=== PATIENT | male | born 1960 | race Caucasian/White ===

== ENCOUNTER 2021-04-14 19:57 | Inpatient (IN) | payer MEDICAID ==
[~2021-04-14] VITALS: Ht 172.7 cm; Wt 106.6 kg
[2021-04-14 19:57] VITALS: BP 123/75
--- NOTE | 2021-04-14 19:57 | NUR ---
ed from [facility] ([facility] [place]) c/o fever and hypotension. according to facility, patient is nonverbal but tracks but per family patient responds to yes and no question with head responses. patient was warm to the touch and diaphoretic. patient with increased RR up to 40s upon admission. per facility patient was saturating at around 85%. crackles throughout lung berry with and without auscultation. patient admitted with varghese, gtube, and a sacral wound. patient on anticoagulation. PMH: DM2, CVA, DVT/PE, COVID, chronic respiratoy failure, seizure, HTN, Neurogenic bladder allergies: meropenem, vancomycin pt DNR with selective treatment
--- NOTE | 2021-04-14 19:57 | NUR ---
PT LORETTA ALS. TAKEN TO BED 7
[2021-04-14] MEDS ORDERED: NACL 0.9% 1,000 ML IV ONE ×2 (20:05→22:15)
[2021-04-14] MEDS ORDERED: VANCOMYCIN 1,000 MG in DEXTROSE 5% 250 ML IV ONE (20:05)
[2021-04-14] MEDS ORDERED: PIPERACILLIN/TAZOBACTAM 3.375 GM in DEXTROSE 5% 50 ML IV ONE (20:05)
--- NOTE | 2021-04-14 20:19 | NUR ---
xray at bedside
[2021-04-14 21:02] LABS: HEMATOCRIT 39.4 % (36-52); HEMOGLOBIN 12.1 g/dL (12.0-18.0); MEAN CORPUSCULAR HEMOGLOBIN 27 pg (27-31); MEAN CORPUSCULAR HGB CONC 31 g/dL (33-37); MEAN CORPUSCULAR VOLUME 86.4 fL (80-94); PLATELET COUNT (AUTO) 232 K/uL (140-450); RED BLOOD CELL COUNT(AUTO) 4.56 MIL/uL (4.20-6.10); RED CELL DISTRIBUTION WIDTH 18.9 % (11.6-13.7); WHITE BLOOD COUNT (AUTO) 19.3 K/uL (4.8-10.8)
[2021-04-14] MEDS ORDERED: PIPERACILLIN/TAZOBACTAM 3.375 GM VIAL IV ONE (21:24)
[2021-04-14 21:36] LABS: ALBUMIN 2.6 g/dL (3.4-5.0); CARBON DIOXIDE 25.6 mmol/L (21-32); CREATININE 0.9 mg/dL (0.6-1.3); TOTAL BILIRUBIN 0.2 mg/dL (0.0-1.0)
[2021-04-14 21:37] LABS: POTASSIUM 2.6 mmol/L (3.5-5.1)
[2021-04-14 21:48] LABS: LYMPHOCYTES % (MANUAL) 31 % (20-46); METAMYELOCYTES % 1 % (0-0); MONOCYTES % (MANUAL) 2 % (5-12)
[2021-04-14] MEDS ORDERED: POTASSIUM CHLORIDE 10 MEQ TABER PO ONE (21:50)
[2021-04-14] MEDS: LINEZOLID 600MG PREMIX 300 ML IV SCH (22:05)
[2021-04-14] MEDS ORDERED: KCL 20 MEQ/WATER INJ PREMIX 200 ML IV ONE (22:55)
[2021-04-14 23:05] LABS: BILIRUBIN,URINE NEGATIVE (NEGATIVE); BLOOD, URINE 1+ (NEGATIVE); LEUKOCYTE ESTERASE ,URINE 1+ (NEGATIVE); NITRITE, URINE NEGATIVE (NEGATIVE); UGLUCOSE NEGATIVE (NEGATIVE)
[2021-04-14] MEDS ORDERED: NACL 0.9% 1,000 ML IV SCH (23:15)
[2021-04-14] MEDS ORDERED: MORPHINE SULFATE 2 MG/ML SYR IVP PRN (23:15)
[2021-04-14] MEDS ORDERED: HYDROcodone/APAP 5/325 MG 1 TAB TAB PO PRN (23:15)
[2021-04-14] MEDS ORDERED: POTASSIUM CHLORIDE 40 MEQ, LIDOCAINE MPF 1% 25 MG in NACL 0.9% 250 ML IV PRN (23:15)
[2021-04-14] MEDS ORDERED: ONDANSETRON 4 MG/2 ML VIAL IM/IVP PRN (23:15)
[2021-04-14] MEDS ORDERED: INSULIN LISPRO SLIDING SCALE 100 UNITS/ML VIAL SUBQ PRN (23:15)
[2021-04-14] MEDS ORDERED: DEXTROSE 50% 50 ML SYR IVP PRN (23:15)
[2021-04-14] MEDS ORDERED: DOCUSATE SODIUM 100 MG GELCAP PO PRN (23:15)
[2021-04-14] MEDS ORDERED: MAG SULF 2000 MG/WATER PREMIX 50 ML IV PRN (23:15)
[2021-04-14] MEDS ORDERED: SODIUM PHOS / POTASSIUM PHOS 1 PKT PDR PO PRN (23:15)
[2021-04-14 23:43] LABS: URINE TOTAL PROTEIN 72.1 mg/dL (0-12)
--- NOTE | 2021-04-14 23:44 | NUR ---
patient daughter Jocelyne called for updates.
[2021-04-14 23:51] LABS: APPEARANCE,URINE HAZY (CLEAR); COLOR,URINE YELLOW (YELLOW)
[2021-04-14 23:54] LABS: RBC,URINE 0-5 /HPF (0-5)
[2021-04-14 23:55] LABS: CALCIUM OXALATE CRYSTALS,UR 50-70 /HPF (None Seen)
--- NOTE | 2021-04-15 00:45 | NUR ---
Patient noted to have existing wounds upon arrival to ER. Photos taken of wound and placed in chart. Wound covered with dressing. Physician informed.
[2021-04-15 00:46] LABS: MAGNESIUM 2.1 mg/dL (1.8-2.4); PHOSPHORUS 2.9 mg/dL (2.5-4.9)
--- NOTE | 2021-04-15 01:15 | NUR ---
pericare done for patient, bed bath, and changed clothing. Patient repositioned on the left side. patient tolerated well. safety measures are in place, will continue to monitor patient
[2021-04-15 01:37] LABS: ANION GAP 13.4 (8-16); CARBON DIOXIDE 28.3 mmol/L (21-32); POTASSIUM 3.7 mmol/L (3.5-5.1)
[2021-04-15] MEDS ORDERED: NACL 0.45% 1,000 ML IV SCH (01:50)
--- NOTE | 2021-04-15 03:29 | NUR ---
Patient repositioned on the supine. patient tolerated well. safety measures are in place, will continue to monitor patient
[2021-04-15] MEDS ORDERED: METF-988 PO (06:54)
[2021-04-15] MEDS ORDERED: GUAN1TAB6 GT (06:54)
[2021-04-15] MEDS ORDERED: KEP500L GT (06:54)
[2021-04-15] MEDS ORDERED: APIX5TAB GT (06:54)
[2021-04-15] MEDS ORDERED: CLON-553 GT (06:54)
[2021-04-15] MEDS ORDERED: LANS15EC31 GT (06:54)
[2021-04-15] MEDS ORDERED: NOVN SUBQ (06:54)
[2021-04-15] MEDS ORDERED: ACET-2619 PO (06:54)
[2021-04-15] MEDS ORDERED: SIME1SOL GT (06:54)
[2021-04-15] MEDS ORDERED: VITB12 GT (06:54)
[2021-04-15] MEDS ORDERED: LANTUS SUBQ (06:54)
[2021-04-15] MEDS ORDERED: CRAN450T5 GT (06:54)
[2021-04-15] MEDS ORDERED: FURO-572 GT (06:54)
--- NOTE | 2021-04-15 07:19 | NUR ---
Pt report given to Dewey BASURTO. Transfer of care at this time.
--- NOTE | 2021-04-15 07:19 | NUR ---
Report and continuation of care received from SHERINE Mena.
[2021-04-15] MEDS: BLOOD GLUCOSE MONITORING 1 DEV DEV FS SCH ×4 (07:45→20:12)
--- NOTE | 2021-04-15 08:00 | NUR ---
RECEIVED REPORT FROM ER NURSE CITLALY BASURTO, PATIENT IS NON VERBAL, WITH G TUBE, LEIGH CATHETER, AND WOUND FROM TRACH, IV ON LEFT WRIST GAUGE 22 WITH D5 1/2 NS AT 60 MLS/HR, FROM [facility], VITAL SIGNS STABLE AND ON ROOM AIR 98%. SODIUM LEVEL AT 161. LACTIC ACID 2.9.
--- NOTE | 2021-04-15 08:06 | NUR ---
Report given to SHERINE Koehler. Requested 10 minutes before transferring
[2021-04-15 08:40] VITALS: BP 131/81
--- NOTE | 2021-04-15 08:40 | NUR ---
RECEIVED PT ON THE UNIT, ASSISTED TO BED AND HOOK ON 5LPM OXYGEN CHANGED PT GOWN, SEIZURE PRECAUTION DONE, VITAL SIGNS CHECK, ORIENTED TO ROOM, SAFETY MEASURES IN PLACE AND CALL LIGHT WITHIN REACH .WILL CONTINUE TO MONITO.
--- NOTE | 2021-04-15 08:40 | NUR ---
Patient will be admitted to care of Dr. Torres. Admited to Telemetry. Will go to room 110B. Belongings list completed. Report to SHERINE Mejia.
--- NOTE | 2021-04-15 08:40 | NUR ---
Note milena in ED - 04/15/21 at 0902 by ANTIONETTE Patient will be admitted to care of Dr. Torres. Admited to Telemetry. Will go to room 110B. Belongings list completed. Report to SHERINE Mejia.
[2021-04-15] MEDS: PANTOPRAZOLE 40 MG INJ VIAL IVP SCH (09:28)
[2021-04-15] MEDS: LINEZOLID 600MG PREMIX 300 ML IV SCH ×2 (09:28→20:06)
--- NOTE | 2021-04-15 09:39 | NUR ---
PATIENT HAS BEEN SCREENED AND CATEGORIZED HIGH NUTRITION RISK. PATIENT WILL BE SEEN WITHIN 1-2 DAYS OF ADMISSION. 04/15/2021-04/16/[address]
--- NOTE | 2021-04-15 09:47 | NUR ---
ADMINISTERED [id number] MEDICATION PANTOPRAZOLE AND LINEZOID 600 MG INFUSING WELL NO DISTRESS NOTED. WILL CONTINUE TO MONITOR.
[2021-04-15 11:05] LABS: HEMOGLOBIN 11.9 g/dL (12.0-18.0)
[2021-04-15 11:07] LABS: HEMATOCRIT 38.7 % (36-52); MEAN CORPUSCULAR HEMOGLOBIN 27 pg (27-31); MEAN CORPUSCULAR HGB CONC 31 g/dL (33-37); MEAN CORPUSCULAR VOLUME 87.8 fL (80-94); PLATELET COUNT (AUTO) 251 K/uL (140-450); RED CELL DISTRIBUTION WIDTH 19.4 % (11.6-13.7)
[2021-04-15 11:10] LABS: ANION GAP 12.5 (8-16); CARBON DIOXIDE 28.4 mmol/L (21-32); CREATININE 0.9 mg/dL (0.6-1.3); POTASSIUM 3.9 mmol/L (3.5-5.1)
--- NOTE | 2021-04-15 11:22 | NUR ---
BLOOD SUGAR 159 MG/DL INSULIN COVERAGE OF 2 UNITS GIVEN. PT IS RESTING.
[2021-04-15 11:56] LABS: BASOPHILS % (MANUAL) 0 % (0-2); EOSINOPHILS % (MANUAL) 1 % (0-4); LYMPHOCYTES % (MANUAL) 15 % (20-46); MONOCYTES % (MANUAL) 3 % (5-12)
[2021-04-15 12:00] VITALS: BP 135/78
[2021-04-15] MEDS: DEXTROSE 5% 1,000 ML IV SCH (13:39)
--- NOTE | 2021-04-15 13:42 | NUR ---
CHANGE IV FLUID IN D51/ NS AT 60 TO DEXTROSE 5% 000 ML AT 60 MLS/HR INFUSING WELL. PT SLEEPING NO DISTRESS NOTED.
--- NOTE | 2021-04-15 14:51 | NUR ---
04/15/21 RD INITIAL ASSESSMENT COMPLETED PLEASE REFER TO NUTRITION ASSESSMENT UNDER CARE ACTIVITY FOR ESTIMATED NUTRITIONAL NEEDS. RD RECOMMENDATIONS: 1. RECOMMEND GLUCERNA 1.2 AT GOAL RATE OF 60 ML/HR, FREE WATER FLUSH AT 200 ML Q6H -AT GOAL RATE, TUBE FEEDING WILL PROVIDE 1728 KCAL AND 86 GM PROTEIN, MEETING 100% OF ESTIMATED KCAL AND PROTEIN NEEDS. 2. RECOMMEND VITAMIN C 500 MG DAILY TO PROMOTE WOUND HEALING. 3. RD WILL F/U 2-3 DAYS; HIGH RISK. TRENTON RODRÍGUEZ, RD
[2021-04-15 16:00] VITALS: BP 113/66
--- NOTE | 2021-04-15 16:00 | NUR ---
BLOOD SUGAR CHECK 114 MG/DL NO INSULIN COVERAGE.
[2021-04-15 16:37] LABS: ANION GAP 14.5 (8-16); CARBON DIOXIDE 25.2 mmol/L (21-32); CREATININE 0.8 mg/dL (0.6-1.3); POTASSIUM 4.7 mmol/L (3.5-5.1)
--- NOTE | 2021-04-15 19:10 | NUR ---
STARTED TUBE FEEDING GLUCERNA 1.2 AT 40 ML/HR 100 Q4H WATER FLUSH. INFUSING WELL.
--- NOTE | 2021-04-15 19:25 | NUR ---
ENDORSED TO NIGHT NURSE FOR CONTINUITY OF CARE. PT STABLE
--- NOTE | 2021-04-15 19:26 | NUR ---
RECEIVED REPORT FROM DAY SHIFT NURSE. PT IN BED RESTING WITH HOB ELEVATED. PT AWAKE, NON-VERBAL, WITH SPONTANEOUS EYE OPENING. RESPIRATIONS EVEN AND UNLABORED TO O2 5LPM/NC. NO S/SX OF RESPI DISTRESS NOTED. PT SINUS TACHY ON TELE MONITORING. ABDOMEN SOFT AND NON-TENDER, GTUBE IN PLACE. PT ON CONTINUOUS FEEDING INFUSING WELL. PT WITH LEIGH CATHETER IN PLACE DRAINING WELL TO YELLOW URINE. SKIN IS WARM AND DRY. SACRAL ULCER NOTED, DRESSING IN PLACE. IV ACCESS ON LEFT WRIST G22 PATENT AND INTACT. IVF INFUSING WELL. NO S/SX OF PAIN OR DISCOMFORT NOTED, FLACC 0. PT KEPT COMFORTABLE. SAFETY MEASURES IN PLACE. CALL LIGHT WITHIN REACH. WILL CONTINUE TO MONITOR.
[2021-04-15 20:00] VITALS: BP 132/60
--- NOTE | 2021-04-15 20:12 | NUR ---
VS STABLE. SCHEDULED MEDS GIVEN. PT TURNED AND REPOSITIONED. O2 KEPT IN PLACE. FLACC 0. WILL CONTINUE TO MONITOR.
[2021-04-15] MEDS ORDERED: CRUSHER, PILL MC ONE (22:27)
[2021-04-15] MEDS: APIXABAN 2.5 MG TAB GT SCH (22:28)
[2021-04-15] MEDS: ACETAMINOPHEN 325 MG TAB PO PRN (22:29)
[2021-04-15] MEDS: levETIRAcetam 100 MG/ML ORASYR GT SCH (22:29)
--- NOTE | 2021-04-15 22:29 | NUR ---
PT FEBRILE. PRN TYLENOL GIVEN ORDERED. COOLING MEASURES IN PLACE. WILL CONTINUE TO MONITOR.
[2021-04-16] VITALS: BP 105/60
--- NOTE | 2021-04-16 00:34 | NUR ---
PT AFEBRILE. OTHER VS STABLE. PT REPOSITIONED IN BED. COVID PCR SWAB COLLECTED AND SENT TO LAB. WILL CONTINUE TO MONITOR.
[2021-04-16] MEDS: DEXTROSE 5% 1,000 ML IV SCH ×3 (01:16→21:20)
--- NOTE | 2021-04-16 01:57 | NUR ---
ASLEEP. VISIBLE CHEST RISE AND FALL NOTED. PT NOT IN DISTRESS. FLACC 0. PT KEPT COMFORTABLE AND SAFE. WILL CONTINUE TO MONITOR.
[2021-04-16 04:00] VITALS: BP 131/66
--- NOTE | 2021-04-16 04:39 | NUR ---
VS STABLE. ORAL CARE, PERINEAL CARE, SKIN CARE, CATHETER CARE DONE. PT TOLERATED CARE PROVIDED. PT TURNED AND REPOSITIONED. PT NOT IN DISTRESS. PT KEPT SAFE AND COMFORTABLE. WILL CONTINUE TO MONITOR.
[2021-04-16] MEDS: PIPERACILLIN/TAZOBACTAM 3.375 GM in DEXTROSE 5% 50 ML IV SCH ×3 (05:17→18:18)
[2021-04-16] MEDS ORDERED: PIPERACILLIN/TAZOBACTAM 3.375 GM VIAL IV ONE (05:19)
[2021-04-16] MEDS: BLOOD GLUCOSE MONITORING 1 DEV DEV FS SCH ×4 (06:29→21:21)
--- NOTE | 2021-04-16 07:33 | NUR ---
REPORT GIVEN TO DAY SHIFT NURSE FOR CONTINUITY OF CARE
[2021-04-16 07:41] LABS: CARBON DIOXIDE 24.3 mmol/L (21-32); CREATININE 0.8 mg/dL (0.6-1.3); POTASSIUM 3.3 mmol/L (3.5-5.1)
[2021-04-16 07:44] LABS: BASOPHILS % (AUTO) 0.3 % (0.0-2.0); EOSINOPHILS # (AUTO) 0.4 K/uL (0-0.4); EOSINOPHILS % (AUTO) 2.9 % (0.0-4.0); HEMATOCRIT 35.2 % (36-52); HEMOGLOBIN 10.8 g/dL (12.0-18.0); LYMPHOCYTES # (AUTO) 2.8 K/uL (2.0-11.5); LYMPHOCYTES % (AUTO) 18.7 % (20.5-51.1); MEAN CORPUSCULAR HEMOGLOBIN 27 pg (27-31); MEAN CORPUSCULAR HGB CONC 31 g/dL (33-37); MEAN CORPUSCULAR VOLUME 87.5 fL (80-94); MONOCYTES # (AUTO) 0.5 K/uL (0.8-1.0); MONOCYTES % (AUTO) 3.3 % (1.7-9.3); NEUTROPHILS # (AUTO) 11.1 K/uL (1.8-7.7); NEUTROPHILS % (AUTO) 74.8 % (42.2-75.2); PLATELET COUNT (AUTO) 230 K/uL (140-450); RED BLOOD CELL COUNT(AUTO) 4.02 MIL/uL (4.20-6.10); RED CELL DISTRIBUTION WIDTH 18.7 % (11.6-13.7); WHITE BLOOD COUNT (AUTO) 14.8 K/uL (4.8-10.8)
[2021-04-16 08:00] VITALS: BP 149/81
--- NOTE | 2021-04-16 08:00 | NUR ---
Patient awake, alert but unable to verbalize needs. Shows no signs of pain, lactic acid at 2.3 and notified Physician.
--- NOTE | 2021-04-16 09:30 | NUR ---
WOUND CARE EVALUATION NOTE: SKIN ASSESSMENT DONE WITH THIS 60 Y/P PT. WITH RECENT CXR SHOWED INFILTRATES, PAST MEDICAL HX CVA, SEIZURE DISORDER, IDDM, HTN, CHRONIC PE, PEG. PATIENT HAD H/O TRACH, BUT NO LONGER REQUIRING VENT AND DECANNULATED. PATIENT REPORTEDLY HAD 1 DAY OF EVER AND HYPOXIA. ALL ABOVE INFORMATION OBTAINED FROM ADMISSION H&P. PT. INCONTINENT OF BOWEL AND BLADDER, SKIN COLOR PALE, WARM TO TOUCH, NO EDEMA. PEDAL PULSES PRESENT AND NORMAL. BLANCHABLE REDNESS TO BILATERAL HEELS, SKIN INTACT. PT. REMAINS LOW GAVINO SCALE AT HIGH RISK, WILL CONTINUE TO FOLLOW PRESSURE INJURY PREVENTION INTERVENTIONS. INTEGUMENTARY: -GT EYAD-STOMA SITE SKIN DRY AND CLEAN -BILATERAL HEELS BLANCHABLE REDNESS, SKIN INTACT, AREA OFFLOADING -SACRALCOCCYX STAGE 4 PRESSURE INJURIES 5X5X1.2CM UNDERMINING AROUND THE CLOCK, 0.8CM 20 % LIGHT YELLOW SLOUGH SCATTERED TO WOUND BED, 80 % RED GRANULATING TISSUE, SMALL AMOUNT SEROSANGUINEOUS DRAINAGE, NO ODOR, EYAD WOUND SKIN RED, MOIST, FURTHER DAMAGE INDICATED -SCROTAL RED, SKIN THIN AND INTACT RECOMMENDATIONS -APPLY HYDRAGUARD TO HEELS, SCROTAL AREAS BID LEARNING DISABILITIES SPECIALIST AND OFFLOADING AREAS -CLEANSE SACRAL COCCYX WITH WOUND CARE SOLUTION, PAT DRY, PACK WOUND WITH HYDRUGEL AND ADAPTIC DRESSING AND COVER WITH COMPOSITE DRESSING QD AND PRN IF SOILING -HEEL PROTECTORS TO BILATERAL HEELS -TURN AND REPOSITION PATIENT Q 2H -ASSESS AND MONITOR SKIN CONDITION DURING POSITION CHANGE, -OFFLOAD BILATERAL HEELS BY PLACING PILLOWS UNDER CALVES AT ALL TIMES, UNLESS OTHERWISE CONTRAINDICATED -PRESSURE REDISTRIBUTION BY PLACING PILLOWS AND OFFLOADING SACRALCOCCYX -KEEP SKIN CLEAN AND DRY AT ALL TIMES.
[2021-04-16 12:00] VITALS: BP 118/69
[2021-04-16] MEDS: APIXABAN 2.5 MG TAB GT SCH ×2 (12:20→21:21)
[2021-04-16] MEDS: LINEZOLID 600MG PREMIX 300 ML IV SCH ×2 (12:23→21:19)
[2021-04-16] MEDS: levETIRAcetam 100 MG/ML ORASYR GT SCH ×2 (12:23→21:20)
[2021-04-16] MEDS: PANTOPRAZOLE 40 MG INJ VIAL IVP SCH (12:24)
--- NOTE | 2021-04-16 14:13 | NUR ---
DC PLANNIN YRS OLD MALE PATIENT WAS ADMITTED FROM [facility] WITH A DX OF SEPSIS. PT HAS A HX OF CVA TRACH TO VENT. SZ, HTN, DM, CHRONIC PE, AND G-TUBE. CXR SHOWED NO EVIDENCE OF ACUTE CARDIOPULMONARY DISEASE. CT ABD/PELVIS SHOWED BILATERAL LOWER LOBE AIRSPACE CONSOLIDATION SUSPICIOUS FOR MULTIFOCAL PNEUMONIA POSSIBLE COVID. RAPID COVID TEST NEGATIVE PCR IS PENDING. ADMINISTERED IVF, IV ABX ZOSYN AND CONTINUED HOME MEDS . URINE AND BLOOD CULTURE PENDING. CONSULTED WITH PULMO, NEPHRO, ID AND WOUND CONSULT FOR SACRAL PRESSURE ULCER. DC PLAN TO RETURN TO [facility] WHEN STABLE CM TO FOLLOW Addendum: 04/18/21 at 1204 by Jayleen Pack RN DC PLANNING: PATIENT HAS PERSISTENT TACHYCARDIA 111-121 CONSULTED WITH SALES REPRESENTATIVE WIRE ROPE. CM TO FOLLOW Addendum: 04/20/21 at 1557 by Jayleen Pack RN DC PLANNING: PATIENT IS GOING BACK TO [place] CAN GO TO ROOM 108 [facility] WITH [facility]. AWAITING FOR ETA CM TO FOLLOW. Addendum: 04/20/21 at 1622 by Jayleen Pack RN DC PLANNING: [facility] WITH [facility] [id number] [phone] SPOKE WITH LEONOR REF # [id number] ETA TIME WITH IN 3 HRS AND WILL CALL THE UNIT. CM TO FOLLOW
--- NOTE | 2021-04-16 14:54 | NUR ---
NUTRITION CONSULT FOR WOUNDS/PRESSURE ULCERS COMPLETED SPOKE WITH RN, SHO RANGEL RD RECOMMENDATIONS WERE FOR GLUCERNA 1.2 @ 60 ML/HR TO MEET 100% ESTIMATED ENERGY AND PROTEIN NEEDS. RN STATES TF CURRENTLY RUNNING @ 40 ML/HR PER MD ORDER, RECOMMENDATION RELAYED TO RN IS FOR TF RATE TO INCREASE AGAIN TO 60 ML/HR
[2021-04-16 16:00] VITALS: BP 133/76
[2021-04-16] MEDS: SKINTEGRITY HYDROGEL TP SCH (16:14)
--- NOTE | 2021-04-16 16:29 | NUR ---
Potassium at 3.3 requested pharmacy for Potassium per order and awaiting medication.
[2021-04-16] MEDS: ACETAMINOPHEN 325 MG TAB PO PRN (17:07)
--- NOTE | 2021-04-16 19:25 | NUR ---
RECEIVED PT AWAKE, APHASIC, UNABLE TO FOLLOW COMMANDS, IVF INFUSING WELL, G-TUBE FEEDING ON-GOING, KEEP HOB ELEVATED AT ALL TIMES, LEIGH CATHETER IN PLACE WITH YELLOW OUTPUT, SAFETY MEASURES IN PLACE, WILL REPOSITION Q2H AND OFFLOAD PRESSURE AREAS, FREQUENT ROUNDS WILL BE MADE.
[2021-04-16 20:00] VITALS: BP 134/77
--- NOTE | 2021-04-16 21:30 | NUR ---
BLOOD SUGAR CHECKED WITH 99 RESULT, 10ML GT RESIDUAL NOTED, DUE MEDS ADMINISTERED, REPOSITIONED AND OFFLOAD PRESSURE AREAS, NEEDS ANTICIPATED.
[2021-04-17] VITALS: BP 146/88
--- NOTE | 2021-04-17 | NUR ---
SEEN PT SLEEPING, PT HAD LARGE SOFT BROWN BM, CLEANED AND REPOSITIONED, CONTINUE TO MONITOR CLOSELY.
[2021-04-17] MEDS: PIPERACILLIN/TAZOBACTAM 3.375 GM in DEXTROSE 5% 50 ML IV SCH ×4 (00:35→18:35)
[2021-04-17] MEDS: HYDRAGUARD CREAM TP SCH ×2 (01:30→10:35)
[2021-04-17 04:00] VITALS: BP 139/81
--- NOTE | 2021-04-17 04:00 | NUR ---
PT OPEN EYES TO TOUCH, VITAL SIGNS STABLE, NO RESP DISTRESS NOTED, FLACC-0, G-TUBE FEEDING ON-GOING, MONITORED CLOSELY.
[2021-04-17] MEDS: BLOOD GLUCOSE MONITORING 1 DEV DEV FS SCH ×4 (06:47→21:00)
[2021-04-17 07:05] LABS: BASOPHILS # (AUTO) 0.1 K/uL (0.00-0.22); BASOPHILS % (AUTO) 0.7 % (0.0-2.0); EOSINOPHILS # (AUTO) 0.6 K/uL (0-0.4); EOSINOPHILS % (AUTO) 4.5 % (0.0-4.0); HEMATOCRIT 31.9 % (36-52); HEMOGLOBIN 10.1 g/dL (12.0-18.0); LYMPHOCYTES # (AUTO) 2.6 K/uL (2.0-11.5); LYMPHOCYTES % (AUTO) 21.4 % (20.5-51.1); MEAN CORPUSCULAR HEMOGLOBIN 27 pg (27-31); MEAN CORPUSCULAR HGB CONC 32 g/dL (33-37); MEAN CORPUSCULAR VOLUME 85.1 fL (80-94); MONOCYTES # (AUTO) 0.4 K/uL (0.8-1.0); MONOCYTES % (AUTO) 3.5 % (1.7-9.3); NEUTROPHILS # (AUTO) 8.6 K/uL (1.8-7.7); NEUTROPHILS % (AUTO) 69.9 % (42.2-75.2); PLATELET COUNT (AUTO) 214 K/uL (140-450); RED BLOOD CELL COUNT(AUTO) 3.74 MIL/uL (4.20-6.10); RED CELL DISTRIBUTION WIDTH 17.6 % (11.6-13.7); WHITE BLOOD COUNT (AUTO) 12.2 K/uL (4.8-10.8)
--- NOTE | 2021-04-17 07:25 | NUR ---
PT SLEEPING, NO SIGNS OF DISTRESS, REPORT GIVEN TO SHERINE RANGEL FOR CONTINUITY OF CARE.
[2021-04-17 08:00] VITALS: BP 133/76
--- NOTE | 2021-04-17 08:00 | NUR ---
Patient awake, alert and follows simple commands. Non verbal, shows no signs of pain. Repositioned to supine position, safety co measures in place and patient has no further needs.
[2021-04-17 08:22] LABS: ANION GAP 14.3 (8-16); CARBON DIOXIDE 24.1 mmol/L (21-32); CREATININE 0.7 mg/dL (0.6-1.3); POTASSIUM 3.4 mmol/L (3.5-5.1)
[2021-04-17] MEDS: DEXTROSE 5% 1,000 ML IV SCH ×2 (10:34→18:35)
[2021-04-17] MEDS: CYANOCOBALAMIN 1,000 MCG TAB GT SCH (10:35)
[2021-04-17] MEDS: levETIRAcetam 100 MG/ML ORASYR GT SCH ×2 (10:35→20:40)
[2021-04-17] MEDS: PANTOPRAZOLE 40 MG INJ VIAL IVP SCH (10:36)
[2021-04-17] MEDS: LINEZOLID 600MG PREMIX 300 ML IV SCH ×2 (10:36→20:40)
[2021-04-17] MEDS: APIXABAN 2.5 MG TAB GT SCH ×2 (10:40→20:43)
--- NOTE | 2021-04-17 13:56 | NUR ---
RECEIVED TORB FROM DR. GILMORE TO INCREASE TUBE FEEDING TO GLUCERNA 1.2 @ 70 ML/HR WITH SALO BID
--- NOTE | 2021-04-17 14:14 | NUR ---
04/17/21 RD FOLLOW UP COMPLETED PLEASE REFER TO NUTRITION ASSESSMENT UNDER CARE ACTIVITY FOR ESTIMATED NUTRITIONAL NEEDS. 1.RECOMMEND GLUCERNA 1.2 @70ML/HR - THIS WILL PROVIDE 2016 KCAL/DAY AND 100 GM PROTEIN/DAY 2. CONTINUE FREE WATER FLUSH OF 100 ML Q4H 3. RECOMMEND SALO BID - THIS WILL PROVIDE AN ADDITIONAL AN ADDITIONAL 180 KCALS AND 5G OF PROTEIN WHICH WILL MEET NUTRITIONAL NEEDS. 4. RD WILL F/U 2-3 DAY; HIGH RISK CARIN YANEZ RD
[2021-04-17 14:17] VITALS: BP 126/86
[2021-04-17] MEDS: SKINTEGRITY HYDROGEL TP SCH (14:26)
--- NOTE | 2021-04-17 19:30 | NUR ---
RECEIVED PT REPORT FROM DAYSMOFT NURSE FOR CONTINUITY OF CARE.
[2021-04-17 20:00] VITALS: BP 141/96
--- NOTE | 2021-04-17 21:00 | NUR ---
ALL SCHEDULED MEDS GIVEN VIA GTUBE. PT TOLERATED WELL. BS WAS 115, NO INSULIN COVERAGE GIVEN.
[2021-04-18] VITALS: BP 137/96
[2021-04-18] MEDS: PIPERACILLIN/TAZOBACTAM 3.375 GM in DEXTROSE 5% 50 ML IV SCH ×4 (00:15→18:35)
[2021-04-18] MEDS: HYDRAGUARD CREAM TP SCH ×2 (01:00→14:31)
[2021-04-18] MEDS: DEXTROSE 5% 1,000 ML IV SCH (03:00)
[2021-04-18 04:00] VITALS: BP 134/90
[2021-04-18] MEDS: BLOOD GLUCOSE MONITORING 1 DEV DEV FS SCH ×4 (07:08→21:00)
--- NOTE | 2021-04-18 07:28 | NUR ---
GAVE REPORT TO DAYSHIFT NURSE FOR CONTINUITY OF CARE
[2021-04-18 07:38] LABS: BASOPHILS % (AUTO) 0.3 % (0.0-2.0); EOSINOPHILS # (AUTO) 0.2 K/uL (0-0.4); EOSINOPHILS % (AUTO) 2.2 % (0.0-4.0); HEMATOCRIT 32.5 % (36-52); HEMOGLOBIN 10.5 g/dL (12.0-18.0); LYMPHOCYTES # (AUTO) 2.2 K/uL (2.0-11.5); LYMPHOCYTES % (AUTO) 20.9 % (20.5-51.1); MEAN CORPUSCULAR HEMOGLOBIN 27 pg (27-31); MEAN CORPUSCULAR HGB CONC 32 g/dL (33-37); MEAN CORPUSCULAR VOLUME 84.4 fL (80-94); MONOCYTES # (AUTO) 0.4 K/uL (0.8-1.0); MONOCYTES % (AUTO) 3.7 % (1.7-9.3); NEUTROPHILS # (AUTO) 7.6 K/uL (1.8-7.7); NEUTROPHILS % (AUTO) 72.9 % (42.2-75.2); PLATELET COUNT (AUTO) 246 K/uL (140-450); RED BLOOD CELL COUNT(AUTO) 3.85 MIL/uL (4.20-6.10); RED CELL DISTRIBUTION WIDTH 17.6 % (11.6-13.7); WHITE BLOOD COUNT (AUTO) 10.4 K/uL (4.8-10.8)
[2021-04-18 07:40] LABS: ANION GAP 18.7 (8-16); CARBON DIOXIDE 22.4 mmol/L (21-32); CREATININE 0.7 mg/dL (0.6-1.3); POTASSIUM 3.1 mmol/L (3.5-5.1)
--- NOTE | 2021-04-18 07:41 | NUR ---
Patient awake, alert and oriented, vitals stable. Shows no signs of pain, safety co measures in place with call light, bed lowered and alarm activated and has no further needs.
[2021-04-18 08:00] VITALS: BP 124/89
--- NOTE | 2021-04-18 08:26 | NUR ---
Patient has fever 101.1, Tylenol administered.
[2021-04-18] MEDS: APIXABAN 2.5 MG TAB GT SCH ×2 (08:43→22:24)
[2021-04-18] MEDS: ACETAMINOPHEN 325 MG TAB PO PRN (08:44)
[2021-04-18] MEDS: CYANOCOBALAMIN 1,000 MCG TAB GT SCH (08:44)
[2021-04-18] MEDS: LINEZOLID 600MG PREMIX 300 ML IV SCH ×2 (08:45→22:23)
[2021-04-18] MEDS: levETIRAcetam 100 MG/ML ORASYR GT SCH ×2 (08:45→22:22)
[2021-04-18] MEDS: PANTOPRAZOLE 40 MG INJ VIAL IVP SCH (08:45)
[2021-04-18 12:00] VITALS: BP 153/89
[2021-04-18] MEDS ORDERED: METOPROLOL 25 MG TAB PO SCH (12:25)
[2021-04-18] MEDS: SKINTEGRITY HYDROGEL TP SCH (14:32)
[2021-04-18] MEDS ORDERED: POTASSIUM CHLORIDE 20% 40 MEQ/15 ML UDC GT SCH (15:00)
[2021-04-18 16:00] VITALS: BP 123/80
--- NOTE | 2021-04-18 19:16 | NUR ---
RECEIVED REPORT FROM DAYSMSFT NURSE FOR CONTINUITY OF CARE.
[2021-04-18 20:00] VITALS: BP 130/75
[2021-04-18] MEDS: METOPROLOL 25 MG TAB PO SCH (22:22)
--- NOTE | 2021-04-18 23:57 | NUR ---
THE PATIENT VITALS ARE STABLE , BREATHING IS UNLABORED AND NO SOB , MIDLINE WAS INSERTED AT 2300 , PERIPHERAL IV WAS DISCONTINUED , HE IS ON TUBE FEEDING GLUCERNA 1.2 70/H FLUSH 100Q4, D5 100ML/H , HIS TEMP 98.9 AND MONITERED CLOSELY . COVID NEGATIVE ON 04/15/2021, THE PATIENT IN SR 88 . COMFOT AND SAFETY MEASURES ARE PROVIDED, CALL LIGHT IS IN REACH.
[2021-04-19] MEDS: PIPERACILLIN/TAZOBACTAM 3.375 GM in DEXTROSE 5% 50 ML IV SCH ×4 (00:05→17:19)
[2021-04-19] MEDS: HYDRAGUARD CREAM TP SCH ×2 (01:38→13:17)
[2021-04-19 01:41] VITALS: BP 135/77
[2021-04-19 04:32] VITALS: BP 128/68
--- NOTE | 2021-04-19 07:20 | NUR ---
RECEIVED REPORT FROM UNIVERSITY RELATIONS DIRECTOR PT AWAKE, APHASIC, UNABLE TO FOLLOW COMMANDS, IVF INFUSING WELL, G-TUBE FEEDING ON-GOING, LEIGH CATHETER IN PLACE WITH YELLOW OUTPUT, SAFETY MEASURES IN PLACE, CALLS LIGHT WITHIN REACH
[2021-04-19 07:30] LABS: BASOPHILS % (AUTO) 0.2 % (0.0-2.0); EOSINOPHILS # (AUTO) 0.2 K/uL (0-0.4); EOSINOPHILS % (AUTO) 1.4 % (0.0-4.0); HEMATOCRIT 30.5 % (36-52); HEMOGLOBIN 9.8 g/dL (12.0-18.0); LYMPHOCYTES # (AUTO) 2.6 K/uL (2.0-11.5); LYMPHOCYTES % (AUTO) 21.4 % (20.5-51.1); MEAN CORPUSCULAR HEMOGLOBIN 27 pg (27-31); MEAN CORPUSCULAR HGB CONC 32 g/dL (33-37); MEAN CORPUSCULAR VOLUME 83.3 fL (80-94); MONOCYTES # (AUTO) 0.5 K/uL (0.8-1.0); MONOCYTES % (AUTO) 3.8 % (1.7-9.3); NEUTROPHILS # (AUTO) 8.9 K/uL (1.8-7.7); NEUTROPHILS % (AUTO) 73.2 % (42.2-75.2); PLATELET COUNT (AUTO) 253 K/uL (140-450); RED BLOOD CELL COUNT(AUTO) 3.66 MIL/uL (4.20-6.10); RED CELL DISTRIBUTION WIDTH 17.6 % (11.6-13.7); WHITE BLOOD COUNT (AUTO) 12.2 K/uL (4.8-10.8)
[2021-04-19] MEDS: BLOOD GLUCOSE MONITORING 1 DEV DEV FS SCH ×4 (07:30→21:00)
[2021-04-19 07:49] LABS: MAGNESIUM 1.9 mg/dL (1.8-2.4); PHOSPHORUS 2.7 mg/dL (2.5-4.9)
[2021-04-19 08:00] VITALS: BP 115/51
[2021-04-19] MEDS: CYANOCOBALAMIN 1,000 MCG TAB GT SCH (08:38)
[2021-04-19] MEDS: PANTOPRAZOLE 40 MG INJ VIAL IVP SCH (08:38)
[2021-04-19] MEDS: APIXABAN 2.5 MG TAB GT SCH ×2 (08:40→21:55)
[2021-04-19] MEDS: METOPROLOL 25 MG TAB PO SCH ×2 (08:41→21:55)
[2021-04-19] MEDS: levETIRAcetam 100 MG/ML ORASYR GT SCH ×2 (08:41→21:55)
[2021-04-19] MEDS: LINEZOLID 600MG PREMIX 300 ML IV SCH (08:42)
--- NOTE | 2021-04-19 08:45 | NUR ---
PT LAYING ON BED NO SIGNS OF DISTRESS NOTED, MORNING MEDICATION GOT ADMINISTRAED, PT TOLERATED WELL, ALL SAFETY MEASURES ON PLACE, CALLS LIGHT WITHIN REACH
--- NOTE | 2021-04-19 10:15 | NUR ---
PATIENT ON BED , BREATHING IS UNLABORED AND NO SOB , HE IS ON TUBE FEEDING GLUCERNA 1.2 70/H FLUSH 100Q4, SAFETY MEASURES IN PLACE, CALL LIGHT IS IN REACH.
[2021-04-19 11:30] LABS: ANION GAP 15.2 (8-16); CARBON DIOXIDE 24.5 mmol/L (21-32); CREATININE 0.6 mg/dL (0.6-1.3); POTASSIUM 3.7 mmol/L (3.5-5.1)
[2021-04-19 12:00] VITALS: BP 134/74
--- NOTE | 2021-04-19 12:15 | NUR ---
PATIENT ON BED , BREATHING IS UNLABORED AND NO SOB , HE IS ON TUBE FEEDING GLUCERNA 1.2 70/H FLUSH 100Q4, SAFETY MEASURES IN PLACE, CALL LIGHT IS IN REACH
[2021-04-19] MEDS: SKINTEGRITY HYDROGEL TP SCH (13:17)
--- NOTE | 2021-04-19 14:25 | NUR ---
PATIENT ON BED , BREATHING IS UNLABORED AND NO SOB, SAFETY MEASURES IN PLACE, CALL LIGHT IS IN REACH
--- NOTE | 2021-04-19 15:39 | NUR ---
04/19/21 RD FOLLOW UP COMPLETED PLEASE REFER TO NUTRITION ASSESSMENT UNDER CARE ACTIVITY FOR ESTIMATED NUTRITIONAL NEEDS. 1. CONT. GLUCERNA 1.2 @70ML/HR - THIS WILL PROVIDE 2016 KCAL/DAY AND 100 GM PROTEIN/DAY, MEETING ADEQUATE NUTRIENT NEEDS 2. CONT. FREE WATER FLUSH OF 100 ML Q4H 3. CONT. SALO BID 4. RD WILL F/U 2-3 DAY; HIGH RISK CARIN YANEZ RD
[2021-04-19 16:00] VITALS: BP 123/78
[2021-04-19] MEDS: ACETAMINOPHEN 325 MG TAB PO PRN (16:42)
--- NOTE | 2021-04-19 16:55 | NUR ---
PT LOOK LIKE HE IS IN PAIN, ACCORDING TO HIS FACIAL EXPRESSIONS, AND RAISING HEART RATE, GOT MEDICATED PRN ORDER, ALL SAFETY MEASURES ON PLACE, CALLS LIGHT WITHIN REACH
--- NOTE | 2021-04-19 17:20 | NUR ---
PT LAYING ON BED, NO SIGNS OF DISTRESS NOTED, BREATHING EVEN UNLABORED, ALL SAFETY MEASURES ON PLACE, CALLS LIGHT WITHIN REACH
--- NOTE | 2021-04-19 19:20 | NUR ---
BED SIDE REPORT GIVEN TO PATTERN DEVELOPER NURSE
[2021-04-19 20:00] VITALS: BP 116/66
--- NOTE | 2021-04-19 20:00 | NUR ---
RECEIVED BEDSIDE REPORT FROM DAY RN EARLIER FOR CONTINUITY OF CARE. PATIENT ASLEEP BUT AROUSABLE, OPENS EYES WHEN YOU CALL HIS NAME AND TOUCH. NOT IN ANY DISTRESS AT THIS TIME. VSS. AFEBRILE, SATING 97 % ON 5L/NC. ST ON THERMOFORMING OPERATOR , HR -118. G TUBE FEEDING INFUSING ORDERED. BED IN LOW POSUTION, BREAKS ON AND SIDE RAILS UP. CALL LIGHT WITHIN REACH. WILL CONTINUE POC AND MONITORING.
--- NOTE | 2021-04-19 22:00 | NUR ---
DUE MEDS GIVEN ORDERED PATIENT TOLERATED IT WELL. NO ADVERSE DRUG REACTION NOTED. WILL CONTINUE TO OBSERVE.
[2021-04-20] VITALS: BP 144/72
--- NOTE | 2021-04-20 | NUR ---
VSS, AFEBRILE, SATING 99% ON 5L/NC. ST ON TELE MONITOR, HR-103. CALL LIGHT WITHIN REACH. WILL CONTINUE TO OBSERVE.
[2021-04-20] MEDS: PIPERACILLIN/TAZOBACTAM 3.375 GM in DEXTROSE 5% 50 ML IV SCH ×3 (00:53→12:43)
[2021-04-20] MEDS: HYDRAGUARD CREAM TP SCH ×2 (01:00→13:00)
[2021-04-20 04:00] VITALS: BP 129/83
[2021-04-20] MEDS: BLOOD GLUCOSE MONITORING 1 DEV DEV FS SCH ×4 (05:58→21:00)
--- NOTE | 2021-04-20 07:30 | NUR ---
Pt stable. Endorsed pt to day Rn for continuity of care. Signing off.
--- NOTE | 2021-04-20 07:35 | NUR ---
PT RECEIVED FROM EAR MOLD LABORATORY TECHNICIAN RN . PT RESTING IN BED. NO S/SX OF DISTRESS. CALL LIGHT IS WITHIN REACH . ALL SAFETY MEASURES ARE IN PLACE
[2021-04-20 08:00] VITALS: BP 123/78
[2021-04-20] MEDS: APIXABAN 2.5 MG TAB GT SCH ×2 (09:53→21:00)
[2021-04-20] MEDS: levETIRAcetam 100 MG/ML ORASYR GT SCH ×2 (09:54→21:00)
[2021-04-20] MEDS: CYANOCOBALAMIN 1,000 MCG TAB GT SCH (09:54)
[2021-04-20] MEDS: PANTOPRAZOLE 40 MG INJ VIAL IVP SCH (09:54)
[2021-04-20] MEDS: METOPROLOL 25 MG TAB PO SCH ×2 (09:55→21:00)
--- NOTE | 2021-04-20 09:55 | NUR ---
MEDICATIONS GIVEN PER MD ORDER. PT EDUCATED REINFORCEMENT NEEDED. Lonny () ON PHONE DURING MEDICATION ADMINISTRATION , VERBALIZED UNDERSTANDING FOR ALL MEDICATIONS AND THI OF CARE. FAMILY UPDATED WITH LASTED VITALS SIGNS PER REQUEST.
[2021-04-20] MEDS ORDERED: DOCU-299 PO (10:12)
[2021-04-20] MEDS ORDERED: ZOS3.375PM IV (10:12)
--- NOTE | 2021-04-20 11:08 | NUR ---
PATIENT CHANGED AND REPOSITIONED. PT HAD LARGE BM LOSE AND LIGHT BROWN. LEIGH CARE PERFORMED OT TOLERATED WELL. WOUND CARE DONE AT THIS TIME. ALL SAFETY MEASURES ARE IN PLACE.
--- NOTE | 2021-04-20 11:30 | NUR ---
BG 109 , NO PRN NEEDED PER PROTOCOL. ALL SAFETY MEASURES ARE IN PLACE
[2021-04-20 12:00] VITALS: BP 136/83
--- NOTE | 2021-04-20 12:24 | NUR ---
TUBE FEEDING CHANGED , PT TOLERATED WELL NO RESIDUALS AT THIS TIME
[2021-04-20] MEDS: SKINTEGRITY HYDROGEL TP SCH (13:00)
--- NOTE | 2021-04-20 14:25 | NUR ---
LEIGH CATHETER EMPTIED 850 ML
[2021-04-20 16:00] VITALS: BP 131/85
--- NOTE | 2021-04-20 16:30 | NUR ---
BG ASSESSED 119 .
--- NOTE | 2021-04-20 16:45 | NUR ---
[place] [facility] [place]INUITY OF CARE. RN VERBALIZED UNDERSTANDING.
[2021-04-20 17:30] VITALS: BP 131/85
--- NOTE | 2021-04-20 18:00 | NUR ---
PT RESTING IN BED , DISCHARGE PHOTOS TAKEN . PT TOLERATED WELL PT REPOSITIONED
--- NOTE | 2021-04-20 19:01 | NUR ---
MARILIN [phone] , FROM [facility] CALLED REGARDING INABILITY TO MERCHANDISING ASSISTANT PATIENT TONIGHT AND WILL TRY TO FIND TRANSPORTATION FOR TOMORROW.
--- NOTE | 2021-04-20 19:07 | NUR ---
JAGDEEP KEITA AWARE OF CHANGE OF PLAN , AQUILINO AWARE.
--- NOTE | 2021-04-20 19:30 | NUR ---
PT ENDORSED TO AGRICULTURE EXTENSION SPECIALIST RN FOR CONTINUITY OF CARE. PT INSTABLE CONDITION.
[2021-04-21] MEDS: HYDRAGUARD CREAM TP SCH ×2 (01:00→12:12)
[2021-04-21] MEDS: BLOOD GLUCOSE MONITORING 1 DEV DEV FS SCH ×2 (07:14→12:12)
--- NOTE | 2021-04-21 07:15 | NUR ---
RECEIVE REPORT FROM WIRE WEAVING LOOM SETTER NURSE FOR CONTINUITY OF CARE. PATIENT SLEEPING. PATIENT ON 5 L NC. PATIENT SATING 02 96%. NO ACUTE DISTRESS NOTED. MINIMAL DRAINAGE FROM STOMA. ALL SAFETY MEASURES IN PLACE. CALL LIGHT WITHIN REACH. WILL CONTINUE TO MONITOR.
[2021-04-21 08:00] VITALS: BP 151/94
[2021-04-21] MEDS: CYANOCOBALAMIN 1,000 MCG TAB GT SCH (08:37)
[2021-04-21] MEDS: PANTOPRAZOLE 40 MG INJ VIAL IVP SCH (08:37)
[2021-04-21] MEDS: levETIRAcetam 100 MG/ML ORASYR GT SCH (08:37)
[2021-04-21] MEDS: METOPROLOL 25 MG TAB PO SCH (08:37)
[2021-04-21] MEDS: APIXABAN 2.5 MG TAB GT SCH (08:39)
--- NOTE | 2021-04-21 08:39 | NUR ---
PATIENT IS SLEEPING. NO ACUTE DISTRESS NOTED. PATIENT ON 5L NC. SCHEDULED MEDICATIONS GIVEN. PATIENT HAD MINIMAL RESIDUAL OF 5ML. ALLSAFETY MEASURES IN PLACE. CALL LIGHT WITHIN REACH. WILL CONTINUE TO MONITOR.
--- NOTE | 2021-04-21 09:47 | NUR ---
(04/21/21) RD FOLLOW UP COMPLETED PLEASE REFER TO NUTRITION PROGRESS NOTE UNDER CARE ACTIVITY FOR ESTIMATED NUTRITION NEEDS. RD RECOMMENDATIONS: 1. CONTINUE GLUCERNA 1.2 @70ML/HR. THIS WILL PROVIDE 2016 KCAL/DAY AND 100 GM PROTEIN/DAY, MEETING ADEQUATE NUTRIENT NEEDS 2. CONTINUE FREE WATER FLUSH OF 100 ML Q4H 3. CONTINUE SALO BID 4. RD WILL F/U 2-3 DAY; HIGH RISK IVETTE DAO MS, RDN
--- NOTE | 2021-04-21 09:48 | NUR ---
PATIENT IS SLEEPING. NO ACUTE DISTRESS NOTED. PATIENT ON 5L NC. ALL SAFETY MEASURES IN PLACE. CALL LIGHT WITHIN REACH. WILL CONTINUE TO MONITOR.
--- NOTE | 2021-04-21 10:48 | NUR ---
PATIENT IS SLEEPING. NO ACUTE DISTRESS NOTED. PATIENT ON 5L NC. DAUGHTER AT BEDSIDE. ALL SAFETY MEASURES IN PLACE. CALL LIGHT WITHIN REACH. WILL CONTINUE TO MONITOR.
[2021-04-21 12:00] VITALS: BP 146/95
--- NOTE | 2021-04-21 12:12 | NUR ---
PATIENT AWAKE. NO ACUTE DISTRESS NOTED. PATIENT ON 5L NC. ALL SAFETY MEASURES IN PLACE. CALL LIGHT WITHIN REACH. WILL CONTINUE TO MONITOR.
[2021-04-21] MEDS: SKINTEGRITY HYDROGEL TP SCH (12:13)
--- NOTE | 2021-04-21 12:34 | NUR ---
FOLLOW UP ACADEMIC DEPARTMENT CHAIR AND SPOKE TO GARCÍA FROM [facility], SHE SAID UNABLE TO ACADEMIC DEPARTMENT CHAIR PATIENT TODAY, WE WILL CALL AGAIN [facility].
--- NOTE | 2021-04-21 14:45 | NUR ---
PATIENT AWAKE. NO ACUTE DISTRESS NOTED. PATIENT ON 5L NC. ALL SAFETY MEASURES IN PLACE. CALL LIGHT WITHIN REACH. WILL CONTINUE TO MONITOR.
--- NOTE | 2021-04-21 15:15 | NUR ---
PATIENT AWAKE. NO ACUTE DISTRESS NOTED. PATIENT ON 5L NC. VS STABLE. WRISTBAND REMOVED. MIDLINE REMAIN INTACT AND IN PLACE. LEIGH CATHETER IN PLACE AND DRAINING WELL. GTUBE PATENT. ALL DISCHARGE INFORMATION GIVEN TO [facility]. PATIENT TAKEN BACK TO [facility].
== END 2021-04-21 15:15 | DRG 720 ==
LOC: MED 19:57 → MTU 22:36
PROVIDERS: ADMIT Hospitalist; ATTEND Hospitalist
DX: A41.9 Sepsis, unspecified organism (principal); J96.21 Acute and chronic respiratory failure with hypoxia; G93.49 Other encephalopathy; E43 Unspecified severe protein-calorie malnutrition; L89.154 Pressure ulcer of sacral region, stage 4; N17.9 Acute kidney failure, unspecified; J18.9 Pneumonia, unspecified organism; E87.0 Hyperosmolality and hypernatremia; E87.1 Hypo-osmolality and hyponatremia; Z93.0 Tracheostomy status; E86.0 Dehydration; Z66 Do not resuscitate; R65.20 Severe sepsis without septic shock; I10 Essential (primary) hypertension; N39.0 Urinary tract infection, site not specified; G40.909 Epilepsy, unspecified, not intractable, without status epilepticus; E87.6 Hypokalemia; R13.10 Dysphagia, unspecified; Z20.822 Contact with and (suspected) exposure to COVID-19; N31.9 Neuromuscular dysfunction of bladder, unspecified; K59.00 Constipation, unspecified; K80.20 Calculus of gallbladder without cholecystitis without obstruction; E11.9 Type 2 diabetes mellitus without complications; Z79.4 Long term (current) use of insulin; Z86.711 Personal history of pulmonary embolism; Z88.1 Allergy status to other antibiotic agents; Z93.1 Gastrostomy status; Z74.01 Bed confinement status; Z79.899 Other long term (current) drug therapy; I69.320 Aphasia following cerebral infarction; Z68.35 Body mass index [BMI] 35.0-35.9, adult
CPT/HCPCS: 36415; 71045; 80048; 80053; 81001; 82570; 82948; 83605; 83735; 84100; 84295; 84300; 84484; 85025; 85379; 87040; 87081; 87086; 87804; 93005; 93970; 96361; 96365; 96368; 99291; A6248; C9113; J2001; J2020; J2543; J3420; J3480; J7030; J7060; Q0092; U0003